=== PATIENT | female | born 1945 | race Caucasian/White ===

== ENCOUNTER → 2017-03-01 | Outpatient (CLI) | payer MEDICARE, BC ==
--- NOTE | 2017-03-01 13:00 | RADIOLOGY REPORT (SQ) ---
EXAM DESCRIPTION: FOREARM RIGHT COMPLETED DATE/TIME: 03/01/2017 12:51 pm REASON FOR STUDY: PAIN IN ARM, UNSPECIFIED COMPARISON: None. NUMBER OF VIEWS: Two views of the right forearm. LIMITATIONS: None. FINDINGS: Osteopenic. No fracture or worrisome bone lesion. No elbow joint effusion. Grossly norm al carpal alignment. Thumb base DJD. No radiopaque foreign body. OTHER: No other significant finding. IMPRESSION: As above. Osteopenia. 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 TECHNICAL DOCUMENTATION: JOB ID: [id number]
== END ==
LOC: OD 12:39
PROVIDERS: ATTEND Physician Assistant
DX: M79.631 Pain in right forearm (principal)